=== PATIENT | male | born 1950 | race Caucasian/White ===

== ENCOUNTER 2018-04-02 12:00 | Inpatient (IN) ==
[~2018-04-02 12:00] MED LIST: BUPivacaine Liposome/PF (Exparel) Inj 20ml vial INFIL ONE; Clindamycin 900mg (Premix) 900 MG/50 ML BAG IV ONE; Ketorolac Inj 30 MG, Morphine Inj (Ortho Cocktail) 5 MG, BUPivacaine Inj 0.25% PF 150 MG SPLASH ONE; LIDOCAINE W/ SODIUM BICARB 0.5 ML SYR SUBD PRN; Lactated Ringers 1,000 ML PRIMARY IV SCH; Nasal Sanitizer POPSWAB ampule 3 AMP (Nozin) PREOP DOSE ENOS SCH; Tranexamic Acid 1,000 MG in Sodium Chloride 0.9% 100 ML IV SCH; ceFAZolin Inj 2gm (Premix) 2 GM/50 ML BAG IV ONE
[2018-04-09] MEDS ORDERED: ceFAZolin Inj 2gm (Premix) 2 GM/50 ML BAG IV ONE ×2 (05:55→06:00)
[2018-04-09] MEDS ORDERED: Lactated Ringers 1,000 ML PRIMARY IV ONE (05:55)
[2018-04-09] MEDS ORDERED: LIDOCAINE W/ SODIUM BICARB 0.5 ML SYR ONE (05:55)
[2018-04-09] MEDS ORDERED: Nasal Sanitizer POPSWAB ampule 3 AMP (Nozin) PREOP DOSE ENOS SCH (06:00)
[2018-04-09] MEDS ORDERED: Lactated Ringers 1,000 ML PRIMARY IV SCH ×2 (06:00→06:45)
[2018-04-09] MEDS ORDERED: Tranexamic Acid 1,000 MG in Sodium Chloride 0.9% 100 ML IV SCH (06:00)
[2018-04-09] MEDS ORDERED: BUPivacaine Liposome/PF (Exparel) Inj 20ml vial INFIL ONE ×2 (06:00→07:42)
[2018-04-09] MEDS ORDERED: LIDOCAINE W/ SODIUM BICARB 0.5 ML SYR SUBD PRN ×2 (06:00→06:33)
[2018-04-09] MEDS ORDERED: Ketorolac Inj 30 MG, Morphine Inj (Ortho Cocktail) 5 MG, BUPivacaine Inj 0.25% PF 150 MG SPLASH ONE ×3 (06:00)
[2018-04-09 06:12] LABS: BILIRUBIN,URINE NEGATIVE (NEG); CLARITY,URINE CLEAR (CLEAR); COLOR,URINE YELLOW (Y); GLUCOSE, URINE (UA) NEGATIVE (NEG); OCCULT BLOOD,URINE NEGATIVE (NEG); PH,URINE 5.5 (5.0-8.5); PROTEIN,URINE NEGATIVE (NEG); UROBILINOGEN,URINE 0.2 EU/dL (0.2)
[2018-04-09] MEDS ORDERED: IPRATROPIUM/ALBUTEROL SULFATE 3 ML NEB NEB PRN (06:32)
[2018-04-09] MEDS ORDERED: Prochlorperazine Edisylate Inj 10mg/2ml vial IVP PRN (06:33)
[2018-04-09] MEDS ORDERED: fentaNYL Inj 100 MCG/2 ML VIAL IVP PRN (06:33)
[2018-04-09] MEDS ORDERED: ONDANSETRON 4 MG/2 ML VIAL IVP PRN ×2 (06:33→13:45)
[2018-04-09] MEDS ORDERED: ATROPINE SULFATE 0.4 MG/1 ML VIAL IVP PRN (06:33)
[2018-04-09] MEDS ORDERED: Acetaminophen 1000mg Inj 1,000 MG/100 ML VIAL IV ONE (06:33)
--- NOTE | 2018-04-09 06:34 | CRNA.PROGR ---
Anesthesia Time - Procedure/Recovery Time Start Date: 04/09/18 End Date: 04/09/18 Anesthesia : Time In: 07:42 Anesthesia : Time Out: 11:19 Anesthesia : Total Time: 217 - Total Anesthesia Time Total Anesthesia Time (minutes): 217 - Other Weight: 116 kg Height: 5 ft 9 in Body Mass Index (BMI): 37.8 Physical Status: P3 Anesthesia Type: General Anesthesia : ET
--- NOTE | 2018-04-09 06:37 | CRNA.PROGR ---
Anesthesia Recovery Phase I - Post Anesthesia Evaluation Patient's Condition on Arrival in Phase I: Stable Patient's Condition on Arrival in Phase II: Stable Pain Level: 0
--- NOTE | 2018-04-09 06:37 | CRNA.PROGR ---
Post Anesthesia Phase II - Post Anesthesia Phase II Patient Stable and Discharged To: Med/Surg Care Assumed By Surgeon: Other (Hospitalist) Total Paige Score at Discharge: 9 Post Anesthesia Discharge Criteria Met: Yes
[2018-04-09 06:45] LABS: BASOPHILS # (AUTO) 0.05 10*3/UL; BASOPHILS % (AUTO) 0.6 % (0-1); EOSINOPHILS # (AUTO) 0.41 10*3/UL; Hematocrit [HCT] 46.5 % (42.0-52.0); Hemoglobin [HGB] 15.5 g/dL (14.0-18.0); LYMPHOCYTES # (AUTO) 2.49 10*3/uL; MEAN CORPUSCULAR HEMOGLOBIN 26.9 PG (27-31); MEAN CORPUSCULAR HGB CONC 33.3 g/dL (33-37); MEAN CORPUSCULAR VOLUME 80.6 FL (80-90); MEAN PLATELET VOLUME 10.3 FL (7.4-12.2); MONOCYTES # (AUTO) 0.67 10*3/UL (0.3-0.8); MONOCYTES % (AUTO) 8.2 % (5-15); NEUTROPHILS # (AUTO) 4.52 10*3/UL; NEUTROPHILS % (AUTO) 55.3 % (50-80); RED BLOOD COUNT 5.77 10^6/uL (4.70-6.10)
[2018-04-09] MEDS ORDERED: Sodium Chloride 0.9% 500 ML ONE ×2 (06:52→11:27)
[2018-04-09] MEDS ORDERED: Sodium Chloride 0.9% 2,000 ML PRIMARY IV ONE (06:52)
[2018-04-09 06:54] LABS: BLOOD UREA NITROGEN 20 mg/dL (7-22); BUN/CREATININE RATIO 22.22 (6-20); SERUM ALBUMIN 4.2 g/dL (3.5-4.8)
[2018-04-09 07:03] LABS: PLATELET MORPHOLOGY COMMENT NORMAL MORPHOLOGY (NORM); RBC MORPHOLOGY COMMENT NORMAL MORPHOLOGY (NORM); WBC MORPHOLOGY COMMENT NORMAL MORPHOLOGY (NORM)
[2018-04-09] MEDS ORDERED: HEPARIN 10,000 UNIT/1 ML ONE (07:04)
[2018-04-09] MEDS ORDERED: Gentamicin Inj 40 MG/ML VIAL ONE (07:04)
[2018-04-09] MEDS ORDERED: KETAMINE HCL 100 MG/2 ML SYRINGE IV ONE (07:13)
[2018-04-09] MEDS ORDERED: fentaNYL Inj 250 MCG/5 ML VIAL ONE (07:16)
[2018-04-09] MEDS ORDERED: MIDAZOLAM HCL 2 MG/2 ML VIAL ONE (07:16)
[2018-04-09] MEDS ORDERED: DEXAMETHASONE PF 10 MG/1 ML VIAL ONE (07:21)
[2018-04-09] MEDS ORDERED: PROPOFOL 10 MG/1 ML (200 MG/20 ML) VIAL IV ONE (07:21)
[2018-04-09] MEDS ORDERED: VECURONIUM BROMIDE 10 MG VIAL ONE (07:25)
[2018-04-09] MEDS ORDERED: Sodium Chloride 0.9% vial 10 ML ONE (07:25)
[2018-04-09] MEDS ORDERED: IPRATROPIUM/ALBUTEROL SULFATE 3 ML NEB NEB ONE (07:29)
[2018-04-09] MEDS ORDERED: Sodium Chloride 0.9% vial 40 ML ONE (07:42)
[2018-04-09] MEDS ORDERED: ePHEDrine Inj 50 MG/ML AMP ONE (08:10)
[2018-04-09] MEDS ORDERED: Hetastarch 6% + NS 500 ML IV ONE (08:16)
[2018-04-09] MEDS ORDERED: TRANEXAMIC ACID 1,000 MG / 10 ML VIAL ONE (08:18)
[2018-04-09] MEDS ORDERED: ONDANSETRON 4 MG/2 ML VIAL ONE (08:56)
[2018-04-09] MEDS ORDERED: Montelukast Tab 10 MG TAB PO SCH (09:00)
[2018-04-09] MEDS ORDERED: Esomeprazole DR 20mg Capsule PO SCH (09:30)
--- NOTE | 2018-04-09 10:47 | ORTHO.OP ---
- - -: See Dictated Operative Report Procedure Codes - Hip Procedures Primary Hip Procedure: [id number] : ALEKSANDR (yessica QUILES assisted)
[2018-04-09] MEDS ORDERED: SUGAMMADEX SODIUM 200 MG/2 ML VIAL IV ONE (10:57)
[2018-04-09] MEDS ORDERED: LIDOCAINE MPF 2% - 5 ML (20 MG/1 ML) ONE (10:59)
--- NOTE | 2018-04-09 11:01 | CONSULT ---
Consult Note - Consult Reason for Consult: PostOp Consulation : Ortho Requesting Physician: Gisel Primary Care Provider: NONE NONE - History of Present Illness History of Present Illness: This very nice 67-year-old gentleman who comes in for hip replacement is postop now he is being transfused his own blood he is awake and alert and has no complaints Past Medical History Medical History: History of airway disease, GERD Tobacco Use: Former Smoker Do you dip or chew tobacco: No In the Past 12 Months, Have Used or Abuse Any of the Following Substance: None Review of Systems - Review of Systems All Systems: Reviewed & No Additional Complaints Except as Stated - Respiratory Respiratory: DENIES: Negative System Review, Cough, Sputum, Dyspnea At Rest, Dyspnea with Exertion, Pleuritic Pain, Hemoptysis, Wheezing, Other, See HPI - Cardiovascular Cardiovascular: DENIES: Negative System Review, Chest Pain, Edema, Syncope, Palpitations, Orthopnea, Paroxysmal Nocturnal Dyspnea, Other, See HPI - Gastrointestinal Gastrointestinal / Abdominal: DENIES: Negative System Review, Nausea, Vomiting, Diarrhea, Constipation, Abdominal Pain, Bloody Stool, Poor Appetite, Heartburn, Regurgitation, Bloating, Lactose Intolerance, Melena, Bright Red Blood per Rectum, Other, See HPI Medication / Allergies Home Medications: Home Medications Medication Instructions Recorded Confirmed Type esomeprazole magnesium 40 mg 40 mg PO QDAY 01/18/18 04/09/18 History capsule,delayed release Albuterol Sulfate [Proair Hfa] 1 puff INHALATION DAILY 04/01/18 04/09/18 History Montelukast Sodium [Singulair] 10 mg PO DAILY 04/01/18 04/09/18 History Tramadol HCl 50 mg PO PRN PRN 04/01/18 04/09/18 History Allergies/Adverse Reactions: Allergies Allergy/AdvReac Type Severity Reaction Status Date / Time Penicillins Allergy Severe RASH Verified 04/09/18 06:25 Sulfa (Sulfonamide AdvReac FLUSHING Verified 04/09/18 06:25 Antibiotics) Exam - Vitals Vital Signs: Vital Signs Temperature 97.4 F Pulse Rate 78 Respiratory Rate 18 Blood Pressure 135/92 Pulse Ox 100 Oxygen Flow Rate RA Oxygen Delivery Method Room Air Height 5 ft 9 in Weight 253 lb - General General Appearance: No Acute Distress, Cooperative - Eye Eye Exam: POSITIVE: Normal Appearance, PERRL, EOMI, No Scleral Icterus - Respiratory Respiratory Exam: POSITIVE: Clear to Auscultation - Bilaterally, Breathing Non Labored, Normal To Percussion, Normal to Percussion and Palpation - Cardiovascular Cardiovascular Exam: POSITIVE: RRR, No Murmur, No Clicks, No Gallops, No Rubs, PMI Non-Displaced - GI/Abdominal GI/Abdominal Exam: POSITIVE: Normal Bowel Sounds, Non Tender, Non Distended, Soft, No Masses, No Hepatomegaly, No Splenomegaly, No Organomegaly - Extremities Extremities Exam: POSITIVE: No Clubbing Present, No Edema Present, No Cyanosis Present Results - Labs CBC and BMP: 04/09/18 06:30 04/09/18 06:30 Assessment and Plan - Patient Problems (1) Status post hip replacement Current Visit: Yes Status: Acute Comment: Deferred Dr. Batres for postop PT OT orders anticoagulation and pain control Code(s): Z96.649 - Presence of unspecified artificial hip joint (2) Reactive airway disease Current Visit: Yes Status: Acute Comment: At this time it appears to be stable and continues current meds we'll address if becomes an issue postop labs were reviewed as well Code(s): J45.909 - Unspecified asthma, uncomplicated
[2018-04-09] MEDS: HYDROmorphone 2 MG/1 ML IVP PRN ×2 (11:29→11:52)
[2018-04-09] MEDS ORDERED: HYDROmorphone 2 MG/1 ML ONE ×2 (11:36→13:06)
--- NOTE | 2018-04-09 12:07 | DI ---
AP PELVIS AND LEFT HIP, 04/09/2018 7:40 AM: Clinical History: Status post left total hip replacement. Left hip replacement for osteoarthritis Previous Exam: 01/18/2018. Views: AP pelvis with AP and crosstable lateral views of replaced hip. Patient is status post left total hip replacement. Prosthetic joint articulates normally. Drain tube present. The superior margins of both iliac wings are not included. Bilateral sacroiliitis. Reading: Left total hip replacement. Prosthetic joint articulates normally.
[2018-04-09] MEDS ORDERED: MAG HYDROX/AL HYDROX/SIMETH 30 ML SUSP PO PRN (13:45)
[2018-04-09] MEDS ORDERED: diphenhydrAMINE 25 MG CAPSULE PO PRN (13:45)
[2018-04-09] MEDS ORDERED: Prochlorperazine Tab 10 MG TAB PO PRN (13:45)
[2018-04-09] MEDS ORDERED: HYDROmorphone 2 MG/1 ML IVP PRN (13:45)
[2018-04-09] MEDS ORDERED: ACETAMINOPHEN 325 MG TABLET PO PRN (13:45)
[2018-04-09] MEDS ORDERED: BISACODYL 10 MG SUPPOSITORY RECTAL PRN (13:45)
[2018-04-09] MEDS ORDERED: Ondansetron ODT Tab 8 MG TAB PO PRN (13:45)
[2018-04-09] MEDS ORDERED: CALCIUM CARBONATE 500 MG (TUMS) CHEWABLE TABLET PO PRN (13:45)
[2018-04-09] MEDS ORDERED: KETOROLAC 15 MG/1 ML VIAL IVP PRN (13:45)
[2018-04-09] MEDS: HYDROcodone-APAP 7.5 MG-325 MG TABLET PO PRN ×2 (14:32→21:38)
[2018-04-09] MEDS: Lactated Ringers 1,000 ML PRIMARY IV SCH (15:50)
[2018-04-09] MEDS: ceFAZolin Inj 2gm (Premix) 2 GM/50 ML BAG IV SCH (16:53)
[2018-04-09 17:35] LABS: URINE SAMPLE TYPE CLEAN CATCH URINE
[2018-04-09] MEDS: DOCUSATE 100 MG CAPSULE PO SCH (21:38)
[2018-04-10] MEDS: ceFAZolin Inj 2gm (Premix) 2 GM/50 ML BAG IV SCH (00:25)
[2018-04-10] MEDS: HYDROcodone-APAP 7.5 MG-325 MG TABLET PO PRN ×6 (01:11→22:03)
[2018-04-10] MEDS: Lactated Ringers 1,000 ML PRIMARY IV SCH ×2 (03:03→14:25)
[2018-04-10 05:16] LABS: Hematocrit [HCT] 37.2 % (42.0-52.0); Hemoglobin [HGB] 12.2 g/dL (14.0-18.0); MEAN CORPUSCULAR HGB CONC 32.8 g/dL (33-37); MEAN CORPUSCULAR VOLUME 82.3 FL (80-90); MEAN PLATELET VOLUME 10.9 FL (7.4-12.2); RED BLOOD COUNT 4.52 10^6/uL (4.70-6.10)
[2018-04-10 05:29] LABS: BLOOD UREA NITROGEN 18 mg/dL (7-22)
--- NOTE | 2018-04-10 06:58 | PDOC(PROG) ---
Interval History: No issues overnight no chest pain nausea or vomiting Objective : Data - Labs CBC and BMP: 04/10/18 04:05 04/10/18 04:05 Objective : Exam - General General Appearance: Cooperative - Respiratory Respiratory Exam: Clear to Auscultation - Bilaterally, Breathing Non Labored, Normal To Percussion, Normal to Percussion and Palpation - Cardiovascular Cardiovascular Exam: RRR, No Murmur, No Clicks, No Gallops, No Rubs, PMI Non-Displaced - GI/Abdominal GI/Abdominal Exam: Normal Bowel Sounds, Non Tender, Non Distended, Soft, No Masses, No Hepatomegaly, No Splenomegaly, No Organomegaly - Extremities Extremities Exam: No Clubbing Present, No Edema Present Assessment and Plan - Patient Problems (1) Status post hip replacement Current Visit: Yes Status: Acute Comment: Defer to orthopedic team for PT OT orders pain and anticoagulation Code(s): Z96.649 - Presence of unspecified artificial hip joint (2) Reactive airway disease Current Visit: Yes Status: Acute Comment: Table at present time good urine output vital signs are stable Code(s): J45.909 - Unspecified asthma, uncomplicated
[2018-04-10] MEDS: DOCUSATE 100 MG CAPSULE PO SCH ×2 (09:18→21:01)
[2018-04-10] MEDS: ASPIRIN 325 MG EC TABLET PO SCH ×2 (09:18→21:01)
--- NOTE | 2018-04-10 11:17 | PTI REPORT ---
Thank you for the referral of Beryn Reyes. He was seen on 04/09/18 for an inpatient evaluation status post left total hip arthroplasty with an anterior approach. SUBJECTIVE: The patient is a 67-year-old male who underwent a left total hip replacement earlier today. The patient reports a pain level currently of 2 to 3/10 on the verbal analog scale (0=no pain, 10=worst pain). Overall he states he is doing well and is looking forward to getting up and moving. The patient states that he lives in [place] with his . He states that they have two steps into the home and no railings. The patient states that once he is in the home, everything he needs is accessible on one level. They do have steps to the basement, but he states he doesn't go down there often. The patient states that prior to his surgery he was using a single point cane for ambulation secondary to his hip pain. The patient also denies any falls over the last three months. The patient states he was independent with all ADLs prior to surgery. PAST MEDICAL HISTORY: Past medical history can be found in the patient's medical record. OBJECTIVE FINDINGS: General observations: The patient was alert and oriented to setting upon PT arrival. The patient had a Hemovac in place and also a Provera dressing. He was on two liters of oxygen and had an IV in place as well. Bed mobility: The patient was able to complete a supine to seated edge of bed transfer with verbal cueing and min assist x1. Once sitting up, the patient reported he was a little lightheaded and dizzy but not bad and that subsided shortly after he was sitting for approximately one minute. The patient required mod assist x1 in order to get supine in bed. Once in bed he required max verbal cueing in order to perform bed mobility. Vitals: The patient's blood pressure when he was supine was 120/80. His oxygen saturation was 95%. His heart rate was 83 beats per minute. Once sitting up, the patient's blood pressure was 127/86. His heart rate was 93 beats per minute. His oxygen saturation was 95%. Once standing, the patient's blood pressure was 122/84. His oxygen saturation was 98%. His heart rate was 94 beats per minute. Transfers: The patient was instructed on how to properly perform a sit to stand transfer. The gait belt was placed around the patient and he performed a sit to stand transfer. The patient demonstrated fair initial standing balance and required contact guard assist x1 for safety. The patient stated that he felt good when he was standing up. He denied any lightheadedness or dizziness. The patient was then instructed on how to properly perform a stand to seated transfer. The patient was able to do this correctly. Ambulation: The patient was able to ambulate to the bathroom in his room, approximately 20 feet. In the bathroom he was able to stand and use the bedside urinal and then ambulate back to his bed with standard walker and contact guard assist x1 for safety. ASSESSMENT: The patient has good rehab potential. Problem List: Pain in the left hip Decreased range of motion of the left hip Decreased strength of the left hip Short-Term Goals: To be met by discharge from inpatient: Patient will be able to transfer from bed to stand safely and independently. Patient will be able to ambulate at least 150 feet with walker safely and independently. Patient will be able to ascend and descend at least five stairs with walker safely and independently. Long-Term Goals: To be met following discharge from inpatient: Patient may be seen by outpatient physical therapy if deemed necessary upon time of discharge. TREATMENT PLAN: Patient will be seen B.I.D during the week and one time per day over the weekend as an inpatient to address the above goals and objectives. INITIAL TREATMENT: Treatment today consisted of the initial evaluation followed by one unit of functional activity. Following treatment the patient was left in bed with call light within reach, bed alarm set, and SCDs placed back on bilateral lower extremities. MTDD
[2018-04-10] MEDS: BISACODYL 5 MG TABLET PO PRN (14:52)
--- NOTE | 2018-04-10 16:24 | PT PM DAY ---
Diagnosis : Left Total Hip Arthroplasty PM - Physical Therapy S: The patient states he is doing pretty well. He reports a pain level of 2 to 3/10 on the verbal analog scale (0=no pain, 10=worst pain) and states it is more of a stiffness and soreness than pain. He states he is looking forward to participating with therapy this afternoon. O: The patient ambulated 50 feet with standard walker and contact guard assist x1 for safety. The patient was then brought down to therapy where he received an application of moist heat pack x20 minutes including up to the left hip. The patient performed therapeutic exercises including glut squeezes x10, short arc quads x10, quad sets x10, heel slides x10, and ankle dorsiflexion and plantarflexion x10. The patient then transferred from supine to seated edge of bed and performed 10 sit to stand transfers. The patient performed 10 step ups onto a 4" box with contact guard assist x1 for safety. The patient then ambulated 75 feet with standard walker and contact guard assist x1. The patient then transferred back to the wheelchair and was brought back to his room where he was left with call light within reach and bed alarm on. A: The patient did very well with therapy this afternoon. He was able to complete box step ups and sit to stands and some general strengthening activities for his lower extremity. We will see if the patient will be up to doing stairs tomorrow as he did do really well with his box step ups this afternoon. P: Continue seeing patient BID during the week and one time per day over the weekend for transfers, ambulation, and range of motion/strengthening exercises. CONRAD
--- NOTE | 2018-04-10 16:49 | PT.PROG ---
Progress Note Progress Note: S. Patient stated that he is feeling good this morning. O. Patient ambulated 250 feet around the nurses station and in the [place], he was left with alarm and call light. A. Patient tolerated ambulation well, he was able to ambulate full distance with no increase in pain or problems. Patient would continue to benefit from skilled therapy to increase strength and mobility. P. Continue POC.
--- NOTE | 2018-04-10 19:16 | ORTHO.PROG ---
Last Taken Vital Signs: Vital Signs - Last Taken Temperature 97.3 F 04/10/18 17:00 Pulse Rate 78 04/10/18 17:00 Respiratory Rate 18 04/10/18 17:00 Blood Pressure 113/65 04/10/18 17:00 Pulse Ox 97 04/10/18 17:00 Subjective: Doing well today seen this morning in this evening did well with therapy as able to mobilize to go to the bathroom, has pain controlled by oral medications Objective: Leg is supple dressings are clean and dry patient initially had the PREVENA dressing fell so this was covered with [address] and then replaced with a provisional later on. Motor and sensory exam is nonfocal good pulses brisk refill Laboratory Results 04/10/18 04/10/18 04:05 04:05 WBC 12.73 H RBC 4.52 L Hgb 12.2 L Hct 37.2 L MCV 82.3 MCH 27.0 MCHC 32.8 L RDW Std Deviation 40.5 RDW Coeff of Sly 13.8 Plt Count 203 MPV 10.9 Sodium 138 Potassium 4.7 Chloride 104 Carbon Dioxide 29 Anion Gap 5 BUN 18 Creatinine 0.9 Estimated GFR > 60 BUN/Creatinine Ratio 20.00 Glucose 114 H Calculated Osmolality 288.0 Calcium 8.4 L Vital Signs (24 hrs) 04/09/18 20:30 04/09/18 23:23 04/10/18 04:48 Temperature 98.7 F 98.4 F 98.8 F Pulse Rate [Pulse Oximeter] 73 86 80 Respiratory Rate 20 20 16 Blood Pressure [Left Arm] Blood Pressure [Right Arm] 109/75 124/73 100/68 Pulse Ox 94 95 93 04/10/18 05:32 04/10/18 08:22 04/10/18 11:39 Temperature 97.9 F 97.7 F Pulse Rate [Pulse Oximeter] 69 69 Respiratory Rate 20 18 Blood Pressure [Left Arm] 116/73 105/62 Blood Pressure [Right Arm] Pulse Ox 92 92 98 04/10/18 17:00 Temperature 97.3 F Pulse Rate [Pulse Oximeter] 78 Respiratory Rate 18 Blood Pressure [Left Arm] 113/65 Blood Pressure [Right Arm] Pulse Ox 97 Intake and Output - 8hrs 04/09/18 04/10/18 04/10/18 04/10/18 21:59 05:59 13:59 21:59 Intake: IV 70 / 2870 Intake Oral Amount 3395 / 3695 300 / 3695 480 / 1340 860 / 1340 Breakfast 240 / 240 Dinner 240 / 240 360 / 360 Lunch 240 / 240 Output: Output, Drainage Amount 80 / 195 105 / 195 Output, Urine Amount 1400 / 2950 1550 / 2950 400 / 400 Other: Percent Meal Consumed Breakfast 100% Dinner 100% 100% Lunch 100% Number of Voids 1 Weight 113.942 kg Assessment: Left total hip replacement doing well Plan: Patient will continue with anticoagulation with aspirin and pneumatic sequential devices, oral and IV medication as needed for pain, continue with physical therapy and occupational therapy. We will continue to use a negative pressure dressing for 7 days.
[2018-04-11 05:11] LABS: Hematocrit [HCT] 35.8 % (42.0-52.0); Hemoglobin [HGB] 11.5 g/dL (14.0-18.0); MEAN CORPUSCULAR HEMOGLOBIN 26.9 PG (27-31); MEAN CORPUSCULAR HGB CONC 32.1 g/dL (33-37); MEAN CORPUSCULAR VOLUME 83.6 FL (80-90); MEAN PLATELET VOLUME 10.9 FL (7.4-12.2); RED BLOOD COUNT 4.28 10^6/uL (4.70-6.10)
[2018-04-11 05:38] LABS: BLOOD UREA NITROGEN 20 mg/dL (7-22); BUN/CREATININE RATIO 22.22 (6-20)
[2018-04-11] MEDS: BISACODYL 5 MG TABLET PO PRN (08:30)
[2018-04-11] MEDS: DOCUSATE 100 MG CAPSULE PO SCH ×2 (08:30→21:36)
[2018-04-11] MEDS: HYDROcodone-APAP 7.5 MG-325 MG TABLET PO PRN ×2 (08:30→18:04)
[2018-04-11] MEDS: ASPIRIN 325 MG EC TABLET PO SCH ×2 (08:30→21:37)
--- NOTE | 2018-04-11 10:15 | OT.PROG ---
Progress Note Progress Note: S: Pt reported that he wasn't feeling real well. He is concerned about prostate. O: pt was seen in his room and completed doffing of LE garments Ind. He sat and used A.E Ind to marilou LE garments. He then completed transfer to sink with CGA for safety and completed hygiene INd. He also completed x1 toilet transfer with cues to transition from standing to sitting. When finished he called PT and they took over treatment at this time. A: pt participated well even though he was not feeling well. The more he walked the better he began to feel. He looks safe while completing dressing activity. P: continue per POC.
--- NOTE | 2018-04-11 12:14 | OTI REPORT ---
Thank you for the referral of Berny Reyes. He was seen on 04/10/18 for an occupational therapy inpatient evaluation status post left total hip arthroplasty. SUBJECTIVE: The patient is a 67-year-old male who is being seen secondary to having an anterior total hip replacement. The patient is originally from [place] and lives with his . Prior to admission the patient was independent with all ADLs. PAST MEDICAL HISTORY: Past medical history can be found in the patient's medical record. OBJECTIVE FINDINGS: General observations: The patient was educated and instructed in his hip precautions. Activities of daily living: Today the patient was only able to bend to mid calf in order to dress self, so we did go over adaptive devices. The patient was issued a highway engineering technician and a shoe horn. He already has a bath sponge at home. Today the patient was able to sit in chair and use adaptive devices with minimal verbal cues and min assist. The patient already has a high rise toilet seat as well as a shower chair at home. Transfers: The patient requires contact guard assist for functional transfers. He did need verbal cues in order to complete transfers safely including coming from sit to stand as well as transferring back into bed. The patient was instructed to put his left foot underneath his right leg in order to get into bed so that he did not complete a straight leg raise when getting into bed. The patient required contact guard assist for toilet transfers. ASSESSMENT: The patient would benefit from at least one more occupational therapy session to address going over adaptive devices and how to dress self while following hip precautions as well as functional transfers. Short-Term Goals: To be met by discharge from inpatient: Patient will be able to complete a bed transfer following hip precautions independently. Patient will be able to complete all toilet transfers independently. Long-Term Goals: To be met following discharge from inpatient: Patient will return home, demonstrating modified independence with use of adaptive devices for dressing tasks 100% of the time. TREATMENT PLAN: Patient will be seen B.I.D during the week and one time per day over the weekend as an inpatient to address the above goals and objectives. INITIAL TREATMENT: Treatment today consisted of the evaluation followed by the patient completing dressing tasks with adaptive devices with min assist and min verbal cues. The patient also completed a sit to stand transfer with cues to push off of the surface he is sitting on. The patient ambulated with the walker to the bathroom. Once in the bathroom, he completed a toilet transfer with contact guard assist and verbal cues. The patient stood at the sink x3 minutes for hygiene tasks. The patient then transferred into bed with cues to put left lower extremity underneath his right lower extremity in order to get into bed while following hip precautions. The patient was educated in no straight leg raises and no over-extension of the hip. CONRAD
--- NOTE | 2018-04-11 15:11 | ORTHO.PROG ---
Last Taken Vital Signs: Vital Signs - Last Taken Temperature 99.4 F 04/11/18 13:00 Pulse Rate 85 04/11/18 13:00 Respiratory Rate 20 04/11/18 13:00 Blood Pressure 122/80 04/11/18 13:00 Pulse Ox 95 04/11/18 13:00 Subjective: Patient doing well controlled on oral pain medication Objective: Leg was very minimal swelling the negative pressure close incision dressing is in place with no active issues. No calf, popliteal adductor hiatus or thigh pain. Motor and sensory exam is nonfocal. Intake and Output - 8hrs 04/10/18 04/11/18 04/11/18 04/11/18 21:59 05:59 13:59 21:59 Intake: Intake Oral Amount 860 / 1340 600 / 600 Breakfast 360 / 360 Dinner 360 / 360 Lunch 240 / 240 Output: Output, Urine Amount 150 / 1400 850 / 1400 825 / 825 Other: Percent Meal Consumed Breakfast 100% Dinner 100% Lunch 100% Output,Number of Bowel 1 1 Movements Weight 115.122 kg Weight Measurement Method Standing Scale Laboratory Results 04/11/18 04/11/18 04:00 04:00 WBC 10.30 RBC 4.28 L Hgb 11.5 L Hct 35.8 L MCV 83.6 MCH 26.9 L MCHC 32.1 L RDW Std Deviation 41.5 RDW Coeff of Sly 13.8 Plt Count 184 MPV 10.9 Sodium 134 L Potassium 4.3 Chloride 102 Carbon Dioxide 29 Anion Gap 3 L BUN 20 Creatinine 0.9 Estimated GFR > 60 BUN/Creatinine Ratio 22.22 H Glucose 97 Calculated Osmolality 280.0 Calcium 8.0 L Vital Signs (24 hrs) 04/10/18 17:00 04/10/18 19:00 04/10/18 21:00 Temperature 97.3 F 97.7 F Pulse Rate [Apical] 80 Pulse Rate [Pulse Oximeter] 78 89 Respiratory Rate 18 18 18 Blood Pressure [Left Arm] 113/65 Blood Pressure [Right Arm] 117/66 Pulse Ox 97 94 04/11/18 01:00 04/11/18 03:12 04/11/18 06:54 Temperature 97.5 F 97.5 F 97.4 F Pulse Rate [Apical] Pulse Rate [Pulse Oximeter] 84 80 76 Respiratory Rate 18 18 20 Blood Pressure [Left Arm] Blood Pressure [Right Arm] 111/68 116/69 123/63 Pulse Ox 94 98 91 04/11/18 13:00 Temperature 99.4 F Pulse Rate [Apical] Pulse Rate [Pulse Oximeter] 85 Respiratory Rate 20 Blood Pressure [Left Arm] Blood Pressure [Right Arm] 122/80 Pulse Ox 95 Assessment: Left total hip replacement doing well Anemia postoperative Plan: Patient doing well we will continue with the current postoperative plan as outlined previously
--- NOTE | 2018-04-11 16:16 | PDOC(PROG) ---
Date of Service: 04/11/18 Time of Service: 16:15 Interval History: Subjective Patient did have a bowel movement earlier and he is relieved. He does not have significant pain he said. No nausea. He is normally on Singulair at night for asthma and also he takes Nexium at night. Objective : Data - Labs CBC and BMP: 04/11/18 04:00 04/11/18 04:00 Objective : Exam - General General Appearance: No Acute Distress, Cooperative, Obese - Head Head Exam: Normal Inspection - Eye Eye Exam: Normal Appearance - ENT ENT Exam: Normal Exam - Neck Neck Exam: Normal Inspection - Respiratory Respiratory Exam: Clear to Auscultation - Bilaterally - Cardiovascular Cardiovascular Exam: RRR - GI/Abdominal GI/Abdominal Exam: Normal Bowel Sounds, Non Tender, Non Distended, Soft, No Organomegaly - Rectal Rectal Exam: Deferred - External Exam: Deferred - Extremities Extremities Exam: Normal Inspection - Back Back Exam: Normal Inspection - Neurological Neurological Exam: Alert, Oriented x 3, CN II-XII Intact, No Facial Droop, Speech Intact / Clear - Psychiatric Psychiatric Exam: Normal Affect Assessment and Plan - Patient Problems (1) Status post hip replacement Current Visit: Yes Status: Acute Comment: Continue PT and OT. For DVT prophylaxis he is on aspirin. Code(s): Z96.649 - Presence of unspecified artificial hip joint (2) Reactive airway disease Current Visit: Yes Status: Acute Comment: He has a history of asthma and is suppose to be on Singulair will start tonight. Will put him on also on albuterol when necessary. Code(s): J45.909 - Unspecified asthma, uncomplicated (3) History of gastroesophageal reflux (GERD) Current Visit: Yes Status: Acute Comment: He is on Nexium usually at night will put him on it. Code(s): Z87.19 - Personal history of other diseases of the digestive system
[2018-04-11] MEDS ORDERED: ALBUTEROL SULFATE 8.5 GM HFA INHALER INH PRN (16:17)
--- NOTE | 2018-04-11 16:30 | OT.PROG ---
Progress Note Progress Note: S: pt reported he felt like he needs to go try stairs again so he feels more comfortable. O: pt was seen in therapy and completed transfer upstairs with use of walker,taking no breaks. He then completed x4 stairs up/down safely and effectively. He returned to his room and left upright in chair with call light within reach. A: pt may continue to benefit from therapy to increase strengthening and overall function post surgery. P: continue per POC.
--- NOTE | 2018-04-11 16:58 | PT.PROG ---
Progress Note Progress Note: S. patient stated that he is feeling better this afternoon, he agreed to go to the therapy gym. O. Patient ambulated 175 feet to the therapy gym where he used the nu-step x 5 minutes, then performed, heel slides, quad sets, ankle pumps, seated long arc quads, marches, ball squeezes, sit to stands all x 10, Patient then ambulated 175 feet back to his room where he was left with alarm and call light. A. Patient tolerated therapy well this afternoon, he continues to make gains with mobility and strength, he would benefit from 1 more session of therapy before discharge home. P. Continue POC.
[2018-04-11] MEDS ORDERED: Esomeprazole DR 20mg Capsule PO SCH (21:00)
[2018-04-11] MEDS ORDERED: Montelukast Tab 10 MG TAB PO SCH (21:00)
[2018-04-12] MEDS: HYDROcodone-APAP 7.5 MG-325 MG TABLET PO PRN ×4 (00:02→11:51)
[2018-04-12 05:36] LABS: Hematocrit [HCT] 37.4 % (42.0-52.0); Hemoglobin [HGB] 12.1 g/dL (14.0-18.0); MEAN CORPUSCULAR HEMOGLOBIN 26.8 PG (27-31); MEAN CORPUSCULAR HGB CONC 32.4 g/dL (33-37); MEAN CORPUSCULAR VOLUME 82.9 FL (80-90); MEAN PLATELET VOLUME 10.5 FL (7.4-12.2); RED BLOOD COUNT 4.51 10^6/uL (4.70-6.10)
[2018-04-12 05:51] LABS: BLOOD UREA NITROGEN 16 mg/dL (7-22); BUN/CREATININE RATIO 17.77 (6-20)
[2018-04-12 07:54] VITALS: BP 124/77; RESP 17; TEMP 98.6; O2SAT 93
--- NOTE | 2018-04-12 08:45 | ORTHO.PROG ---
Last Taken Vital Signs: Vital Signs - Last Taken Temperature 98.6 F 04/12/18 07:00 Pulse Rate 79 04/12/18 07:00 Respiratory Rate 17 04/12/18 07:00 Blood Pressure 124/77 04/12/18 07:00 Pulse Ox 93 04/12/18 07:00 Subjective: Patient doing well this morning, pain controlled doing well with therapy Objective: The leg was very minimal swelling the dressing is placed with suction working fine. Motor and sensory exam is nonfocal with good pulses brisk refill. No calf, popliteal, adductor hiatus or thigh pain. No pitting edema or swelling distally. Laboratory Results 04/12/18 04/12/18 04:50 04:50 WBC 10.40 RBC 4.51 L Hgb 12.1 L Hct 37.4 L MCV 82.9 MCH 26.8 L MCHC 32.4 L RDW Std Deviation 40.4 RDW Coeff of Sly 13.7 Plt Count 206 MPV 10.5 Sodium 139 Potassium 4.3 Chloride 103 Carbon Dioxide 31 Anion Gap 5 BUN 16 Creatinine 0.9 Estimated GFR > 60 BUN/Creatinine Ratio 17.77 Glucose 95 Calculated Osmolality 288.0 Calcium 8.4 L Vital Signs (24 hrs) 04/11/18 13:00 04/11/18 17:00 04/11/18 19:47 Temperature 99.4 F 100.8 F H 97.4 F Pulse Rate [Pulse Oximeter] 85 92 92 Respiratory Rate 20 12 20 Blood Pressure [Left Arm] Blood Pressure [Right Arm] 122/80 116/70 120/77 Pulse Ox 95 94 95 04/12/18 01:03 04/12/18 04:41 04/12/18 06:46 Temperature 97.8 F 98.5 F Pulse Rate [Pulse Oximeter] 92 77 79 Respiratory Rate 20 18 Blood Pressure [Left Arm] Blood Pressure [Right Arm] 121/67 110/71 Pulse Ox 93 97 04/12/18 07:00 Temperature 98.6 F Pulse Rate [Pulse Oximeter] 79 Respiratory Rate 17 Blood Pressure [Left Arm] 124/77 Blood Pressure [Right Arm] Pulse Ox 93 Assessment: Left total hip replacement doing well Plan: Continue with physical therapy and occupational therapy this a.m. The patient doing well can be discharged home most likely. Patient will follow-up as previously scheduled on discharge form. Continue icing of hip. Patient should continue with aspirin 81 mg once a day. We discussed use of the pneumatic sequential devices which should be utilized as discussed. I would use the duration of a full discharge and alternate onto the left leg. Patient has a therapy request form which she can begin on Sunday or Sunday. The negative pressure dressing can be removed on Sunday or Sunday and cover incision with Silverlon dressing.
[2018-04-12] MEDS: DOCUSATE 100 MG CAPSULE PO SCH (08:48)
[2018-04-12] MEDS: ASPIRIN 325 MG EC TABLET PO SCH (08:48)
--- NOTE | 2018-04-12 10:08 | DCSUMMARY ---
Hospitalization Summary Admit Date: 04/09/2018 Discharge Date: 04/12/18 Hospital Course: Discharge diagnoses 1. Status post left hip replacement 2. History of asthma 3. History of GERD Hospital course This is a 67 years old male with medical history significant for history of asthma, osteoarthritis and GERD who came into the hospital to have left hip replacement and was done by Dr. Batres. Hospitalist service were consulted for management of medical issues. His postoperative course was uneventful. He did well with physical therapy. We continued with previous medications. I saw him later on during his hospital stay he was participating in physical therapy. On the day of discharge he was cleared by physical therapy he denied symptoms his exam was much remarkable. For DVT prophylaxis he was discharged on aspirin 81 mg a day per Recommendation of Dr. Batres. Laboratory Results 04/12/18 04/12/18 04:50 04:50 WBC 10.40 RBC 4.51 L Hgb 12.1 L Hct 37.4 L MCV 82.9 MCH 26.8 L MCHC 32.4 L RDW Std Deviation 40.4 RDW Coeff of Sly 13.7 Plt Count 206 MPV 10.5 Sodium 139 Potassium 4.3 Chloride 103 Carbon Dioxide 31 Anion Gap 5 BUN 16 Creatinine 0.9 Estimated GFR > 60 BUN/Creatinine Ratio 17.77 Glucose 95 Calculated Osmolality 288.0 Calcium 8.4 L Discharge instruction Diet regular Activity as tolerated Medications Current Medication(s) Medication Instructions Recorded Confirmed Type esomeprazole magnesium 40 mg 40 mg PO QDAY 01/18/18 04/09/18 History capsule,delayed release Albuterol Sulfate [Proair Hfa] 1 puff INHALATION DAILY 04/01/18 04/09/18 History Montelukast Sodium [Singulair] 10 mg PO DAILY 04/01/18 04/09/18 History Aspirin EC 81mg tab 04/12/18 Rx HYDROcodone/APAP 7.5/325 Tab 1 - 2 tab PO Q4H PRN #50 tab 04/12/18 Rx [[place] 7.5/325 Tab] Follow-up with Dr. Batres as scheduled PCP 1-2 weeks Condition at discharge was stable for discharge Exam - Vitals Vital Signs: Vital Signs Temperature 98.6 F Temperature Source Oral Pulse Rate [Apical] 80 Pulse Rate [Pulse Oximeter] 79 Pulse Rate 86 Respiratory Rate 17 Blood Pressure [Right Arm] 110/71 Blood Pressure [Left Arm] 124/77 Blood Pressure 95/70 Pulse Ox 93 Oxygen Flow Rate 2 Oxygen Delivery Method Room Air Height 5 ft 9 in Weight 252 lb 4 oz - General General Appearance: No Acute Distress, Cooperative - Head Head Exam: Normal Inspection - Eye Eye Exam: POSITIVE: Normal Appearance - ENT ENT Exam: POSITIVE: Normal Exam - Neck Neck Exam: Normal Inspection - Respiratory Respiratory Exam: POSITIVE: Clear to Auscultation - Bilaterally - Cardiovascular Cardiovascular Exam: POSITIVE: RRR - GI/Abdominal GI/Abdominal Exam: POSITIVE: Normal Bowel Sounds, Non Tender, Non Distended, Soft, No Organomegaly - Rectal Rectal Exam: POSITIVE: Deferred - External Exam: POSITIVE: Deferred Exam: POSITIVE: Deferred - Extremities Extremities Exam: POSITIVE: Normal Inspection - Back Back Exam: POSITIVE: Normal Inspection - Neurological Neurological Exam: POSITIVE: Alert, Oriented x 3, CN II-XII Intact, No Facial Droop, Speech Intact / Clear - Psychiatric Psychiatric Exam: POSITIVE: Normal Affect - Integumentary Integumentary Exam: POSITIVE: Normal Color Patient Problems - Patient Problem List (1) Status post hip replacement Status: Acute Code(s): Z96.649 - Presence of unspecified artificial hip joint Category: Surgical (2) Reactive airway disease Status: Acute Code(s): J45.909 - Unspecified asthma, uncomplicated Category: Medical (3) History of gastroesophageal reflux (GERD) Status: Acute Code(s): Z87.19 - Personal history of other diseases of the digestive system Category: Medical
--- NOTE | 2018-04-12 11:59 | PT.PROG ---
Progress Note Progress Note: S. Patient stated that he is feeling good. He feels that he is ready to go home. O. Patient ascended and descended 5 stairs and ambulated 175 feet to the therapy gym where he had heat to his hip and then performed, heel slides, quad sets, ankle pumps, short arc quads, ankle pumps, hip abduction/adduction all x 10, sit to stands x 10, Patient then ambulated 175 feet back to his room where he was left with alarm and call light. A. Patient tolerated therapy well this morning, he was able to perform all exercises with no increase in pain or problems. P. Patient has met all goals at this time.
== END 2018-04-12 12:23 | disposition home or self-care (01) | DRG 470 ==
LOC: OPS 04-09 05:45 → MED/SURG 04-09 13:42
PROVIDERS: ADMIT Orthopaedic Surgery; ATTEND Orthopaedic Surgery